=== PATIENT | female | born 2000 | race Caucasian/White ===

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

== ENCOUNTER 2024-04-06 09:42 | Outpatient (CLI) | payer BC, SELFPAY ==
--- NOTE | ~2024-04-06 | US_ITS ---
EXAMINATION: US pelvic complete w TV INDICATION: Left pelvic fullness Comparison:No prior studies for comparison. TECHNIQUE: Multiple transabdominal and endovaginal sonographic images of the pelvis performed. FINDINGS: The uterus measures 7.8 x 4.2 x 3 cm. IUD is present. The endometrial complex measures 3 mm . The right ovary measures 2.1 x 1.9 x 2.3 cm and the left ovary measures 2.1 x 4 x 3.2 cm. There is a left ovarian cyst measuring 3.7 cm. There are small follicles in each ovary. Normal doppler signal in both ovaries. There is no free fluid in the pelvis. There are no abnormal masses seen on either side. IMPRESSION: 1. Simple left ovarian cyst measuring 3.7 cm. Reviewed, dictated and finalized at location B.
== END 2024-04-06 09:43 ==
LOC: GOSHIMG 09:43
PROVIDERS: PCP Pediatrics; Visit Provider Nurse Practitioner
DX: R19.09 Other intra-abdominal and pelvic swelling, mass and lump (principal); N83.202 Unspecified ovarian cyst, left side
CPT/HCPCS: 76830; 76856

== ENCOUNTER 2024-05-31 09:14 | Outpatient (CLI) | payer BC, SELFPAY ==
--- NOTE | ~2024-05-31 | US_ITS ---
EXAMINATION: US pelvic complete w TV DATE: 05/31/2024 09:37 INDICATION: Left ovarian cyst. TECHNIQUE: Multiple transabdominal and transvaginal sonographic images of the pelvis were obtained. COMPARISON: Ultrasound 04/06/2024 FINDINGS: TRANSABDOMINAL ULTRASOUND: The uterus measures 8.0 x 4.3 x 3.3 cm. There is no free fluid in the pelvis. TRANSVAGINAL ULTRASOUND: The endometrial complex measures 3 mm in thickness. There is an intrauterine device in expected posit ion. The right ovary measures 2.4 x 1.8 x 2.0 cm. The left ovary is not visualized. IMPRESSION: 1. Left ovary not visualized. 2. Intrauterine device in expected position. Reviewed, dictated and finalized at location A.
== END 2024-05-31 09:15 | disposition home or self-care (01) ==
LOC: GOSHIMG 09:15
PROVIDERS: PCP Obstetrics & Gynecology Gynecology; Visit Provider Obstetrics & Gynecology Gynecology
DX: N83.202 Unspecified ovarian cyst, left side (principal); Z97.5 Presence of (intrauterine) contraceptive device
CPT/HCPCS: 76830; 76856

== ENCOUNTER 2024-12-24 15:02 | Emergency (ER) | payer BC, SELFPAY ==
--- NOTE | 2024-12-24 15:03 | ED.ABDPAIN ---
HPI - Abdominal Pain General Chief Complaint: Abdominal Pain Stated Complaint: Abdominal Pain Time Seen by Provider: 12/24/24 15:20 Source: patient Mode of arrival: ambulatory Limitations: no limitations History of Present Illness HPI narrative: Floyd is a 24-year-old female patient presenting to the clinic today with complaints of right lower quadrant pain that started 2-3 hours ago. She reports pain was sharp initially but now is dull. Denies any urinary symptoms. Denies any chance of . Last menstrual period unknown- has IUD. Last BM yesterday and normal. No n/v/d. No fever. Related Data Home Medications ?Medication ?Instructions ?Recorded ?Confirmed ?Last Taken ?Type norethindrone 1 mg-ethinyl 1 tablet PO DAILY 12/18/20 01/13/21 12/27/20 History estradiol 20 mcg (24)-iron 75 mg (4) tablet (Aurovela 24 Fe) Allergies Allergy/AdvReac Type Severity Reaction Status Date / Time No Known Allergies Allergy Verified 12/24/24 15:04 Review of Systems Review of Systems: Pertinent positives per HPI. Patient denies any fever, chills, rash, headache, visual changes, dizziness, cough, runny nose, sore throat, shortness of breath, chest pain, palpitations, nausea, vomiting, diarrhea, constipation, or any urinary issues. PMFSH Social History Social History Smoking status: Never smoker Alcohol intake: never Substance use: never Substance use type: does not use Living arrangements: with family Spiritual care concerns: No Comments At the time of my signature, I reviewed and agree with the nursing past medical, surgical, social, and family history. There is no relevant family history pertinent to the patient complaint. Exam Narrative: General: Well-developed, well nourished, in no apparent distress. Head: Normocephalic, atraumatic. Cardio: Regular rate and rhythm, s1 and s2 normal, no murmur appreciated. Resp: Clear to auscultation bilaterally, no rhonchi, rales, wheezing or rubs. Abdomen: Soft, pliable, bowel sounds present in all quadrants, right upper and lower quadrant tender to palpation, no psoas, no rebound, no organomegly, no CVAT tenderness. Course Course Emergency Course: Portions of this record may have been created with voice recognition software. Level of Care: Express Care Visit Vital Signs Vital signs: Vital signs reviewed Transfer Transfered to: [facility] Transportation: Other (Private car) Transfer rationale: Right lower quadrant abdominal pain rule out appendicitis Accepting physician: Pricilla-physician's administrative personal assistant Transfer comments: Private car MDM - Abdominal Pain MDM Narrative Medical decision making narrative: At the time of visit patient is resting comfortably on the exam table. Patient appears to be nontoxic. Plan: Patient has right lower quadrant tenderness as well as some right upper quadrant tenderness. No fever, nausea, vomiting, or diarrhea. No urinary symptoms. Recommend transfer to the emergency room for further evaluation to rule out appendicitis. Patient would like to go to [facility] emergency room. Contacted Pricilla-physician administrative personal assistant at [facility] and she accepts patient for transfer. Patient to be transferred via private car. Differential Diagnosis Differential diagnosis: Likely abdominal pain, acute appendicitis, calculus of kidney, constipation, diverticulitis, endometriosis, gastroenteritis, pancreatitis, small bowel obstruction and other (Ectopic ) Discharge Plan Discharge Clinical Impression: Right lower quadrant abdominal pain Patient Disposition: Acute Care Hospital Condition: Stable Patient Language: [place] Islander Prescriptions: No Action norethindrone-e.estradiol-iron [Aurovela 24 Fe] 1 mg-20 mcg (24)/75 mg (4) tablet 1 tablet PO DAILY Follow-up/Referrals: PHYSICIAN,[employer] WORKER [Primary Care Provider] - Time of Disposition: 15:30 Quality NIHSS Nursing Documentation ED NIHSS nursing documentation: reviewed/agree
[2024-12-24 15:22] VITALS: BP 143/87; PULSE 75; RESP 16; TEMP 36.9; O2SAT 100
== END 2024-12-24 15:30 | disposition short-term general hospital (02) ==
PROVIDERS: Emergency Provider Nurse Practitioner Family
DX: R10.31 Right lower quadrant pain (principal)
CPT/HCPCS: 99212; G0463

== ENCOUNTER 2024-12-24 15:45 | Emergency (ER) | payer BC, SELFPAY ==
--- NOTE | ~2024-12-24 | CT_ITS ---
EXAMINATION: CT abdomen pelvis w con DATE: 12/24/2024 17:17 INDICATION: RLQ pain TECHNIQUE: Computed tomography (CT) of the abdomen and pelvis was performed with intravenous contrast . Automated exposure control and iterative reconstruction technique were employed. The dose-length pr oduct was 192.97 mGy-cm. COMPARISON: None. FINDINGS: Lower thorax: Unremarkable Liver: Normal. Biliary/Gallbladder: Gallbladder is normal. No bile duct dilation. Pancreas: No mass or duct dilation. Spleen: 6 mm cyst or hemangioma. Adrenals:No mass. Kidneys: No suspicious mass, obstructing stone, or hydronephrosis. GI tract: No small or large bowel dilation. Normal appendix. Mesentery/Peritoneum: No ascites, mass, or free air. Retroperitoneum: No mass. Pelvis: Urinary bladder. Normal uterus. IUD, in good position. Normal left ovary. The right ovaries l arger than the left, measuring up to 3.5 cm versus 2.1 cm on the left. Soft Tissues: Soft tissues and body wall unremarkable. Bones: No acute osseous finding. IMPRESSION: Asymmetric enlargement of the right ovary, without evidence of twisting of the vascular pedicle. Poss ible hyperdense/isodense ovarian cyst or other lesion. Correlate for clinical findings of torsion. Co nsider pelvic ultrasound. Reviewed, dictated and finalized at location K. IMPRESSION: Asymmetric enlargement of the right ovary, without evidence of twisting of the vascular pedicle. Possible hyperdense/isodense ovarian cyst or other lesion. Co rrelate for clinical findings of torsion. Consider pelvic ultrasound.
--- NOTE | ~2024-12-24 | US_ITS ---
EXAMINATION: US pelvic complete w TV DATE: 12/24/2024 18:51 INDICATION: rlq pain, abnormal ct of ovary TECHNIQUE: Multiple transabdominal and endovaginal sonographic images of the pelvis were obtained. COMPARISON: CT abdomen pelvis 12/24/2024. FINDINGS: Uterus: 8.1 x 3.3 x 4.[address], in good position, which obscures the endometrial complex. F luid in the endocervical canal. Right Ovary: 2.7 x 2.0 x 2.2 cm. Vascular flow is present. 8 and 9 mm simple cysts or dominant follic les. Left Ovary: 2.2 x 1.7 x 1.6 cm. Vascular flow is present. No adnexal mass. There is no free fluid in the pelvis. IMPRESSION: IUD, in good position. Endometrial stripe is obscured. Endocervical fluid, correlate with menstrual c ycle and/or evidence of vaginal bleeding. Normal-appearing ovaries. Reviewed, dictated and finalized at location K. IMPRESSION: IUD, in good position. Endometrial stripe is obscured. Endocervical fluid, sheila elate with menstrual cycle and/or evidence of vaginal bleeding. Normal-appearin g ovaries.
--- OUTSIDE RECORDS SUMMARY | 2024-12-24 15:47 | XMS_ITS | Data Portability ---
Author Organization [place] - [facility] [employer], Main Office Address [address] [place] [address] Assessment No assessment recorded. Plan of Treatment Reminders Order Date Submit Date Provider Last Modified By Organization Details Last Modified Time Details Appointments None recorded. Lab CBC w/ auto diff 2023 [facility], [address] [place], [address], 13:31:55 T4, free, serum 2023 [facility], [address] [place], [address], 14:10:32 TSH, serum or plasma 2023 [facility], [address] [place], [address], 14:28:43 CMP, serum or plasma 2023 [facility], [address] [place], [address], 13:54:39 Referral None recorded. Procedures None recorded. Surgeries None recorded. Imaging None recorded. Medication Orders paroxetine 10 mg tablet 2023 [place] [facility] [id number], [address] , [place], [place], [id number], 11:04:47 Patient TargetsNo targets recorded. Patient Instructions Encounter Date Encounter Id Patient Instructions Last Modified By Organization Details Last Modified Time 08/30/2024 [id number] risk assessment* Not availabl e 08/30/2024 11:04:40 INFLUENZA VACCIN E Recommended today, but patient declined Ordered Leydi ent will get at local pharmacy/health department TD/TDAP Recommended today, patient declined Ordered Leydi ent will get at local pharmacy/health department MAMMOGRAM Recommended today, but patient declined Ordered No screening indicated at this time/ no family history CERVICAL SCREENING/PELVIC EXAMINATION No screening necessary patient is up to date COLORECTAL SCREENING Recommended today, but patient declined Ordered Varney noscopy declined. Cologuard ordered No screening necessary until age 45 DEPRESSION SCREENING Negative BMI Overweight Appropriat e NUTRITION Heart Healthy Diet PHYSICAL ACTIVITY Appropriate VISION ALCOHOL USE No alcohol use Occasional/Social Use TOBACCO USE non smoker SEXUALLY ACTIVE GLUCOSE SCREENING Ordered Not needed LIPID SCREENING Ordered Not needed [email or web address] Not available 08/30/2024 10:55:46 Will patient evaluation risk assessment stable. Follow-up for anxiety disorder. Will check some blood work consisting of CBC thyroid and CMP. Will continue on current medications started on some paroxetine 10 mg once daily to see if there is any improvement. Will proceed accordingly. Check back in eight weeks. Follow Up: 2 Months Approximate Date: 10/29/2024 Portions of the record may have been created with voice recognition software. Occasional wrong-word or [id number]-c-[id number] substitutions may have occurred due to the inherent limitations of voice recognition software. Read the chart carefully and recognize, using context, where substitutions have occurred. Created: Jaspal Vigil M.D. 08.30.2024 10:04 AM [email or web address] Not available 08/30/2024 11:05:02 10/25/2024 [id number] Follow-up for an xiety doing well. He is taking the paroxetine on a p.r.n. Type basis and getting by well with this. See no contraindications to continue the administer the medication at this frequency. Will continue on current Rx follow-up in six months Follow Up: 6 Months Approximate Date: 04/23/2025 Portions of record are template driven. When necessary additional context will be provided. Additionally some portions have been created with voice recognition software. Occasional wrong-word or uezsv-h-bufi substitutions may have occurred due to the inherent limitations of voice recognition software. Read the chart carefully and recognize, using context, where substitutions may have occurred. Created: Jaspal Vigil M.D. 10.25.2024 04:05 PM [email or web address] Not available 10/25/2024 17:05:45 Reason for Referral None Reported. Results Created Date Observation Date Name Description Value Unit Range Abnormal Flag Note LastModifiedBy Organization Detail LastModifiedTime 04/29/20 21 04/29/2021 SARS- COV-2 RNA(C OVID1 9),RT -PCR sars-cov-2 RNA(covid19) ,RT-PCR negati ve This test has been autho rized by the FDA under an Emerg ency Use Autho rizat ion (EUA) for use by autho rized labor atori es. Negat adelso resul ts do not precl ude SARS- CoV-2 and shoul d not be used as the sole basis for treat ment or other patie nt manag ement decis ions. Test resul ts shoul d be corre lated with the clini nury histo ry, epide miolo gical data, and other data avail able to the clini stephanie evalu ating the patie nt. Jahaira howard w the Fact Sheet s for healt h care provi ders and patie nts at the [facility] jason: https ://ww w.fda .gov/ media /1363 12/do wnloa d https ://ww w.fda .gov/ media /1363 13/do wnloa d https ://ww w.fda .gov/ media /1421 92/do wnloa d https ://ww w.fda .gov/ media /1421 91/do wnloa d Ayanna mensah y: Real- Time RT-PC R Not Available [facility] (Lab) [address] [place], [address], 04/29/2021 15:08:52 05/15/20 21 05/15/2021 C REACT ADELSO PROTE IN,UL TRA SENS C-reactive protein 2.23 mg/dL 0.0-0. 5 high Not Available [facility] (Lab) [address] [place], [address], 05/15/2021 17:13:52 05/15/20 21 05/15/2021 D-DIM ER D-dimer 0.57 mg/L_ feu 0.00-0 .49 high D-Dim er negat adelso predi ctive value to exclu de DVT and PE is <0.50 mg/L (FEU) . Not Available [facility] (Lab) [address] [place], [address], 05/15/2021 16:34:12 08/30/20 24 08/30/2024 CBC/C OMPLE TE BLD COUNT W/DIF F white blood cells 7.5 x10'3 /uL 4.2-10 .8 Not Available [facility] (Lab) [address] [place], [address], 08/30/2024 13:31:55 08/30/20 24 08/30/2024 CBC/C OMPLE TE BLD COUNT W/DIF F red blood cells 4.46 x10'6 /uL 3.80-5 .20 Not Available [facility] (Lab) [address] [place], [address], 08/30/2024 13:31:55 08/30/20 24 08/30/2024 CBC/C OMPLE TE BLD COUNT W/DIF F hemoglobin 13.5 g/dL 12.0-1 5.6 Not Available [facility] (Lab) [address] [place], [address], 08/30/2024 13:31:55 08/30/20 24 08/30/2024 CBC/C OMPLE TE BLD COUNT W/DIF F hematocrit 39.8 % 35.7-4 5.7 Not Available [facility] (Lab) [address] [place], [address], 08/30/2024 13:31:55 08/30/20 24 08/30/2024 CBC/C OMPLE TE BLD COUNT W/DIF F mean red cell volume 89.2 fL 82.0-9 9.0 Not Available [facility] (Lab) [address] [place], [address], 08/30/2024 13:31:55 08/30/20 24 08/30/2024 CBC/C OMPLE TE BLD COUNT W/DIF F mean red cell hemoglobin 30.3 pg 27.0-3 3.0 Not Available [facility] (Lab) [address] [place], [address], 08/30/2024 13:31:55 08/30/20 24 08/30/2024 CBC/C OMPLE TE BLD COUNT W/DIF F mean RBC HGB concentratio n 33.9 g/dL 31.0-3 6.0 Not Available [facility] (Lab) [address] [place], [address], 08/30/2024 13:31:55 08/30/20 24 08/30/2024 CBC/C OMPLE TE BLD COUNT W/DIF F red cell distribution width 12.5 % 11.8-1 5.5 Not Available [facility] (Lab) [address] [place], [address], 08/30/2024 13:31:55 08/30/20 24 08/30/2024 CBC/C OMPLE TE BLD COUNT W/DIF F platelets 266 x10'3 /uL 150-40 0 Not Available [facility] (Lab) [address] [place], [address], 08/30/2024 13:31:55 08/30/20 24 08/30/2024 CBC/C OMPLE TE BLD COUNT W/DIF F mean platelet volume 11.8 fL 9.0-12 .4 Not Available [facility] (Lab) [address] [place], [address], 08/30/2024 13:31:55 08/30/20 24 08/30/2024 CBC/C OMPLE TE BLD COUNT W/DIF F neutrophils 63.4 % 39.0-7 2.0 Not Available [facility] (Lab) [address] [place], [address], 08/30/2024 13:31:55 08/30/20 24 08/30/2024 CBC/C OMPLE TE BLD COUNT W/DIF F lymphocytes 27.8 % 16.0-4 7.0 Not Available [facility] (Lab) [address] [place], [address], 08/30/2024 13:31:55 08/30/20 24 08/30/2024 CBC/C OMPLE TE BLD COUNT W/DIF F monocytes 6.8 % 5.0-12 .0 Not Available [facility] (Lab) [address] [place], [address], 08/30/2024 13:31:55 08/30/20 24 08/30/2024 CBC/C OMPLE TE BLD COUNT W/DIF F eosinophils 1.3 % 1.0-7. 0 Not Available [facility] (Lab) [address] [place], [address], 08/30/2024 13:31:55 08/30/20 24 08/30/2024 CBC/C OMPLE TE BLD COUNT W/DIF F basophils 0.4 % 0.0-2. 0 Not Available [facility] (Lab) [address] [place], [address], 08/30/2024 13:31:55 08/30/20 24 08/30/2024 CBC/C OMPLE TE BLD COUNT W/DIF F immature granulocytes 0.3 % 0.00-0 .50 Not Available [facility] (Lab) [address] [place], [address], 08/30/2024 13:31:55 08/30/20 24 08/30/2024 CBC/C OMPLE TE BLD COUNT W/DIF F neutrophils, absolute count 4.76 x10'3 /uL 1.5-8. 0 Not Available [facility] (Lab) [address] [place], [address], 08/30/2024 13:31:55 08/30/20 24 08/30/2024 CBC/C OMPLE TE BLD COUNT W/DIF F lymphocytes, absolute count 2.09 x10'3 /uL 1.07-3 .43 Not Available [facility] (Lab) [address] [place], [address], 08/30/2024 13:31:55 08/30/20 24 08/30/2024 CBC/C OMPLE TE BLD COUNT W/DIF F monocytes, absolute count 0.51 x10'3 /uL 0.29-0 .99 Not Available [facility] (Lab) [address] [place], [address], 08/30/2024 13:31:55 08/30/20 24 08/30/2024 CBC/C OMPLE TE BLD COUNT W/DIF F eosinophils, absolute count 0.10 x10'3 /uL 0.02-0 .53 Not Available [facility] (Lab) [address] [place], [address], 08/30/2024 13:31:55 08/30/20 24 08/30/2024 CBC/C OMPLE TE BLD COUNT W/DIF F basophils, absolute count 0.03 x10'3 /uL 0.01-0 .08 Not Available [facility] (Lab) [address] [place], [address], 08/30/2024 13:31:55 08/30/20 24 08/30/2024 CBC/C OMPLE TE BLD COUNT W/DIF F immature granulocytes ,absolute 0.02 x10'3 /uL 0.00-0 .05 Not Available [facility] (Lab) [address] [place], [address], 08/30/2024 13:31:55 08/30/20 24 08/30/2024 CBC/C OMPLE TE BLD COUNT W/DIF F nucleated red blood cells 0.0 % -0 Not Available [facility] (Lab) [address] [place], [address], 08/30/2024 13:31:55 08/30/20 24 08/30/2024 CBC/C OMPLE TE BLD COUNT W/DIF F NRBC# 0.00 x10'3 /uL Not Available [facility] (Lab) [address] [place], [address], 08/30/2024 13:31:55 08/30/20 24 08/30/2024 COMPR EHENS ADELSO METAB OLIC PANEL sodium 137 mmol/ L 137-14 5 Not Available [facility] (Lab) [address] [place], [address], 08/30/2024 13:54:39 08/30/20 24 08/30/2024 COMPR EHENS ADELSO METAB OLIC PANEL potassium 4.0 mmol/ L 3.5-5. 1 Not Available [facility] (Lab) [address] [place], [address], 08/30/2024 13:54:39 08/30/20 24 08/30/2024 COMPR EHENS ADELSO METAB OLIC PANEL chloride 104 mmol/ L 98-107 Not Available [facility] (Lab) [address] [place], [address], 08/30/2024 13:54:39 08/30/20 24 08/30/2024 COMPR EHENS ADELSO METAB OLIC PANEL carbon dioxide 24 mmol/ L 22-30 Not Available [facility] (Lab) [address] [place], [address], 08/30/2024 13:54:39 08/30/20 24 08/30/2024 COMPR EHENS ADELSO METAB OLIC PANEL anion gap 13.0 mmol/ L 14-22 low Not Available [facility] (Lab) [address] [place], [address], 08/30/2024 13:54:39 08/30/20 24 08/30/2024 COMPR EHENS ADELSO METAB OLIC PANEL glucose 85 mg/dL 70-99 Not Available [facility] (Lab) [address] [place], [address], 08/30/2024 13:54:39 08/30/20 24 08/30/2024 COMPR EHENS ADELSO METAB OLIC PANEL BUN 15 mg/dL 8-19 Not Available [facility] (Lab) [address] [place], [address], 08/30/2024 13:54:39 08/30/20 24 08/30/2024 COMPR EHENS ADELSO METAB OLIC PANEL creatinine 0.84 mg/dL 0.66-1 .25 Not Available [facility] (Lab) [address] [place], [address], 08/30/2024 13:54:39 08/30/20 24 08/30/2024 COMPR EHENS ADELSO METAB OLIC PANEL GFR >60 Refer ence Range : [place] GFR Healt hy Adult : >60 mL/mi n/1.7 3 m2 Chron ic Kidne y Disea se: 15-60 mL/mi n/1.7 3 m2 Kidne y Failu re: <15/m L/min /1.73 m2 www.n iddk. nih.g ov The MDRD study equat ion has not been valid ated in child herbie <18 years of age; pregn ant women ; the elder ly >85 years of age; or in some racia l or ethni c subgr oups, such as Hispa nics. Outsi de the valid ated eliz eters , estim ated GFR is less accur ate, requi ring clini nury judgm ent on a case- by-ca se basis . Clini nury inter preta tion for other races and ages must be made by the clini stephanie. The MDRD study equat ion has not been valid ated for the evalu ation of serum creat inine relat ed to nutri michelet l statu s or medic ation usage . For perso ns <18 years of age, a pedia tric GFR calcu lator is avail able on the [facility] websi te: https ://glenis w.susan nicky.o rg/pr ofess ional s/kdo qi/gf r_cal culat or Not Available [facility] (Lab) [address] [place], [address], 08/30/2024 13:54:39 08/30/2008/30/2024 COMPR EHENS ADELSO METAB OLIC PANEL alkaline phosphatase 86 U/L 38-126 Not Available [facility] (Lab) [address] [place], [address], 08/30/2024 13:54:39 08/30/20 24 08/30/2024 COMPR EHENS ADELSO METAB OLIC PANEL alanine aminotransfe rase 33 U/L 0-35 Not Available [facility] (Lab) [address] [place], [address], 08/30/2024 13:54:39 08/30/20 24 08/30/2024 COMPR EHENS ADELSO METAB OLIC PANEL aspartate aminotransfe rase 37 U/L 15-37 Not Available [facility] (Lab) [address] [place], [address], 08/30/2024 13:54:39 08/30/20 24 08/30/2024 COMPR EHENS ADELSO METAB OLIC PANEL bilirubin, total 0.90 mg/dL 0.20-1 .30 Not Available [facility] (Lab) [address] [place], [address], 08/30/2024 13:54:39 08/30/20 24 08/30/2024 COMPR EHENS ADELSO METAB OLIC PANEL calcium 9.6 mg/dL 8.4-10 .2 Not Available [facility] (Lab) [address] [place], [address], 08/30/2024 13:54:39 08/30/20 24 08/30/2024 COMPR EHENS ADELSO METAB OLIC PANEL total protein 8.0 g/dL 6.3-8. 2 Not Available [facility] (Lab) [address] [place], [address], 08/30/2024 13:54:39 08/30/20 24 08/30/2024 COMPR EHENS ADELSO METAB OLIC PANEL albumin 4.6 g/dL 3.4-5. 0 Not Available [facility] (Lab) [address] [place], [address], 08/30/2024 13:54:39 08/30/20 24 08/30/2024 COMPR EHENS ADELSO METAB OLIC PANEL globulin 3.4 g/dL 2.6-4. 2 Not Available [facility] (Lab) [address] [place], [address], 08/30/2024 13:54:39 08/30/20 24 08/30/2024 COMPR EHENS ADELSO METAB OLIC PANEL A/G ratio 1.4 ratio 1.0-2. 0 Not Available [facility] (Lab) [address] [place], [address], 08/30/2024 13:54:39 08/30/20 24 08/30/2024 T4 FREE free T4 1.22 NG/dL 0.78-2 .19 Not Available [facility] (Lab) [address] [place], [address], 08/30/2024 14:10:32 08/30/20 24 08/30/2024 TSH thyroid-stim ulating hormone 2.060 uIU/m L 0.465- 4.680 Not Available [facility] (Lab) [address] [facility], [place], [address], 08/30/2024 14:28:43 05/15/20 21 05/15/2021 elect mary flores am No observ ation record ed. [id number] Not Available 11/25/2022 22:47:06 Result Notes None recorded. Problems Name Problem SNOMED Code Status Onset Date Resolution Date Notes Provider Name and Address Organization Details Recorded Time Acute sinusitis 69736028 Active 022 Not Available [facility] 3 22:45:09 Anxiety disorder 853373565 Active 024 Jaspal Vigil MD [address] [facility], [facility] [address], [place], [address] , [facility] [place] [place] [employer] 4 10:59:59 Problem Notes None recorded. Procedures Surgical History Date Name Laterality Status Provider Name and Address Organization Details Recorded Time Remove tonsils and adenoids completed Not Available [facility] 11/25/2022 22:43:54 Imaging Results Imaging Date Name Status LastModified by Organization Details LastModified Time 05/15/2021 electrocardiogram completed [id number] Information not available 11/25/2022 22:47:06 Procedure Notes None recorded. Medical Equipment None Reported. Medications Name Sig Start Date Stop Date Status Note LastModified by Organization Details LastModified Time amoxicillin 500 mg capsule Take 1 capsule every 8 hours by oral route. 08/30 completed Not Available Not Available Not Available paroxetine 10 mg tablet Take 1 tablet every day by oral route. active Not Available Not Available No t Available Tubersol 5 tub. unit/0.1 mL intradermal injection solution Inject 0.1 mL by intraderm al route. 08/30 completed Not Available Not Available Not Available terconazole 0.8 % vaginal cream INSERT 1 APPLICATO RFUL VAGINALLY AT BEDTIME FOR 3 NIGHTS 08/30 completed Not Available Not Available Not Available Zithromax Z-Tonny 250 mg tablet TAKE 2 TABLETS (500 MG) BY ORAL ROUTE ONCE DAILY FOR 1 DAY THEN 1 TABLET (250 MG) BY ORAL ROUTE ONCE DAILY FOR 4 DAYS 05/15 completed Not Available Not Available Not Available oxycodone 5 mg/5 mL oral solution 01/15 completed Not Available Not Available Not Available ciprofloxac in 250 mg tablet 08/30 completed Not Available Not Available Not Available cephalexin 250 mg/5 mL oral suspension SHAKE LIQUID AND TAKE 10 ML BY MOUTH THREE TIMES DAILY 01/15 completed Not Available Not Available Not Available hydroxyzine HCl 25 mg tablet Take 1 tablet 3 times a day by oral route as needed. 08/30 completed Not Available Not Available Not Available norethindro ne 1 mg-e. estradiol 20 mcg (24)-iron 75 mg (4) chew tablet [employer]VEL CONSULTANT ONE T DAILY 08/30 completed Not Available Not Available Not Available Liletta 20.4 mcg/24 hr (up to 8 years) 52 mg intrauterin e device Take by intrauter ine route. active Not Available Not Available No t Available Aurovela 24 Fe 1 mg-20 mcg (24)/75 mg (4) tablet TAKE 1 TABLET BY MOUTH DAILY 08/30 completed Not Available Not Available Not Available Vitals Date Recorded Body mass index (BMI) Heart rate Body height Heart rate Body temperature Body weight Systolic blood pressure Diastolic blood pressure Provider Name and Address Organization Details Last Updated DateTime 1 19.9 kg/m2 12 /min 152.4 cm 64 /min 97 [degF] 46808.4 2 g 102 mm[Hg] 72 mm[Hg] Not Available [facility] 3 22:44:47 Date Recorded Body mass index (BMI) Body height Oxygen saturation Oxygen saturation in Arterial blood by Pulse oximetry Heart rate Body temperature Body weight Systolic blood pressure Diastolic blood pressure Provider Name and Address Organization Details Last Updated DateTime 1 19.5 kg/m2 152.4 cm 99 % 99 % 87 /min 97.6 [degF] 99608.2 4 g 106 mm[Hg] 60 mm[Hg] Not Available [facility] 3 22:44:47 Date Recorded Body height Body mass index (BMI) Body weight Heart rate Body temperature Oxygen saturation Oxygen saturation in Arterial blood by Pulse oximetry Systolic blood pressure Diastolic blood pressure Provider Name and Address Organization Details Last Updated DateTime 4 152.4 cm 23.4 kg/m2 65512.0 8 g 80 /min 97 [degF] 99 % 99 % 116 mm[Hg] 82 mm[Hg] Thelma CastilloARIELLE [place] [facility] [employer] 4 10:47:50 Date Recorded Body height Body mass index (BMI) Body weight Heart rate Body temperature Oxygen saturation Oxygen saturation in Arterial blood by Pulse oximetry Systolic blood pressure Diastolic blood pressure Provider Name and Address Organization Details Last Updated DateTime 5 152.4 cm 23.4 kg/m2 28527.0 8 g 80 /min 97 [degF] 97 % 97 % 112 mm[Hg] 74 mm[Hg] Roseanna Granados [place] [employer] 5 16:58:21 Social History Question Answer Notes LastModified by Organizat ion Details LastModified Time Tobacco Smoking Status Never Smoker Not Available [facility] 11/25/2022 22:43:40 Do You Have An Advance Directive? No [id number] Information not available 11/25/2022 In The 14 Days Before Symptom Onset, Have You Had Close Contact With A Laboratory-confir med COVID-19 While That Case Was Ill? No [id number] Information not available 11/25/2022 In The 14 Days Before Symptom Onset, Have You Had Close Contact With A Person Who Is Under Investigation For COVID-19 While That Person Was Ill? No [id number] Information not available 11/25/2022 What Type Of Diet Are You Following? REGULAR [id number] Information not available 11/25/2022 Do You Or Have You Ever Used E-cigarettes Or Vape? Never Used Electronic Cigarettes [id number] Information not available 11/25/2022 Have There Been Any Changes To Your Family Or Social Situation? No [id number] Information not available 11/25/2022 Do You Have A Medical Power Of Print Production Associate? No [id number] Information not available 11/25/2022 Do You Or Have You Ever Used Smokeless Tobacco? Never Used Smokeless Tobacco [id number] Information not available 11/25/2022 How Much Tobacco Do You Smoke? No [id number] Information not available 11/25/2022 How Many Years Have You Smoked Tobacco? 0 [id number] Information not available 11/25/2022 Have You Recently Traveled Abroad? No [id number] Information not available 11/25/2022 Do You Have Any Dietary Restrictions? No [id number] Information not available 11/25/2022 Sex: Female Functional Status None recorded. Mental Status None recorded. Family History Relationship Description Onset Age of this Age Resolved Age Notes LastModified by Organization Details LastModified Time Father No current problems or disability [id number] Not available 11/25/2022 22:43:56 Mother No current problems or disability [id number] Not available 11/25/2022 22:43:56 Notes:Mother [address] [facility] er 47 with HTN One sister living in good healthMother 49 with DM Father 51 with HTN One sister living in good health Medical History Condition Response HAVE YOU BEEN HOSPITALIZED OR SEEN IN [facility] IN THE PAST YEAR ? Y NO SIGNIFICANT PAST MEDICAL HISTORY N Gynecological HistoryNo gynecological history recorded. Obstetrics History GPAL:G 0 P 0 0 0 0 Immunizations Vaccine Type Date Status Note Provider [facility] e and Address Organization Details Recorded Time TST-PPD intradermal 1 completed Not Available [facility] 11/25/2022 22:46:52 COVID-19 Non-US Vaccine, Product Unknown 1 completed Not Available [facility] 11/25/2022 22:46:53 COVID-19 Non-US Vaccine, Product Unknown 1 completed Not Available [facility] 11/25/2022 22:46:53 meningococcal ACWY, unspecified formulation 0 completed Not Available [facility] 11/25/2022 22:46:53 meningococcal ACWY, unspecified formulation 8 completed Not Available [facility] 11/25/2022 22:46:53 HPV9 7 completed Not Available [facility] 11/25/2022 22:46:53 HPV9 6 completed Not Available [facility] 11/25/2022 22:46:53 meningococcal ACWY, unspecified formulation 5 completed Not Available [facility] 11/25/2022 22:46:53 Tdap 3 completed [facility] 11/25/2022 22:46:53 varicella 3 completed Not Available [facility] 11/25/2022 22:46:53 MMR 7 completed Not Available [facility] 11/25/2022 22:46:53 IPV 7 completed Not Available [facility] 11/25/2022 22:46:53 DTaP, unspecified formulation 7 completed Not Available [facility] 11/25/2022 22:46:53 Hep A, unspecified formulation 5 completed Not Available [facility] 11/25/2022 22:46:53 Hep A, unspecified formulation 3 completed Not Available [facility] 11/25/2022 22:46:54 IPV 3 completed Not Available [facility] 11/25/2022 22:46:54 Hib, unspecified formulation 3 completed Not Available [facility] 11/25/2022 22:46:54 DTaP, unspecified formulation 3 completed Not Available [facility] 11/25/2022 22:46:54 pneumococcal conjugate PCV 7 3 completed Not Available [facility] 11/25/2022 22:46:54 MMR 3 completed Not Available [facility] 11/25/2022 22:46:54 varicella 2 completed Not Available [facility] 11/25/2022 22:46:54 Hep B, unspecified formulation 2 completed Not Available [facility] 11/25/2022 22:46:54 pneumococcal conjugate PCV 7 2 completed Not Available [facility] 11/25/2022 22:46:54 Hib, unspecified formulation 2 completed Not Available [facility] 11/25/2022 22:46:54 DTaP, unspecified formulation 2 completed Not Available [facility] 11/25/2022 22:46:54 pneumococcal conjugate PCV 7 2 completed Not Available [facility] 11/25/2022 22:46:54 IPV 2 completed Not Available [facility] 11/25/2022 22:46:55 Hib, unspecified formulation 2 completed Not Available [facility] 11/25/2022 22:46:55 DTaP, unspecified formulation 2 completed Not Available [facility] 11/25/2022 22:46:55 pneumococcal conjugate PCV 7 2 completed Not Available [facility] 11/25/2022 22:46:55 IPV 2 completed Not Available [facility] 11/25/2022 22:46:55 Hib, unspecified formulation 2 completed Not Available [facility] 11/25/2022 22:46:55 DTaP, unspecified formulation 2 completed Not Available [facility] 11/25/2022 22:46:55 Hep B, unspecified formulation 1 completed Not Available [facility] 11/25/2022 22:46:55 Hep B, unspecified formulation 1 completed Not Available [facility] 11/25/2022 22:46:55 Influenza, split virus, quadrivalent, PF 2 completed Not Available [facility] 11/25/2022 22:46:55 Influenza, split virus, quadrivalent, PF 1 completed Not Available [facility] 11/25/2022 22:46:55 Past Encounters Encounter ID Performer Location Encounter Start Date Encounter Closed Date Diagnosis/Indication Diagnosis SNOMED-CT Code Diagnosis ICD10 Code Diagnosis Note [id number] S[facility] Internal [facility] [address] [address] 01/15/2021 00:00:00 01/15/2021 14:48:58 [id number] [facility] [address] [address] 05/15/2021 00:00:00 05/15/2021 15:23:07 [id number] Jaspal Vigil MD S[facility] Internal [facility] [address] [address] 08/30/2024 10:27:52 08/30/2024 11:09:14 Adult health examination 290958403 Z00.00 Depression screening 171 553702 Z13.31 Anxiety disorder 9055545 06 F41.9 [id number] Jaspal Vigil MD [facility] [address] [address] 10/25/2024 16:43:08 10/25/2024 17:06:52 Anxiety disorder 976939158 F41.9 Health Concerns Section Related Observation LastModified by Organization Detai ls LastModified Time None Recorded Concern Status LastModified by Organization Details LastModified Time None Recorded Advance Directives Directive N: Payers Encounter Date Sequence Insurance Name Policy Number Policy Amaya Covered Member ID Amaya Member ID Guarantor Name 08/30/2024 1 [place] [id number] Elda Mccauleystrom [id number] [address] Lemos 10/25/2024 1 [place] [id number] Elda Mccauleystrom [id number] Floyd Lemos Notes Date Note Type Note Provider Name and Address Organization Details Recorded Time 08/30/2024 text/html Patient Name: Luly LemosDate Of Service: Wednesday ( 08.30.2024 ): 2000 Age: 24 Vital Signs:Blood Pressure: Sitting Rt. Arm 116/82Pulse: Sitting 80 /min and RegularRespiratory Rate: 16Height 60 in or 1.5 mWeight 120 lb or 54.4 kgBMI 23.4Temperature: 97 F or 36.1 CPulse Oximetry: 99 % at rest on no oxygen Chief Complaint: Addressed in HPI Problems or conditions discussed in the HPI were the only ones reviewed during the encounter.Only social and family history addressed in the HPI were reviewed during this encounter. Attendant(s): NoneConstitutional and Systemic Symptoms:none Medication Reconciliation: from medication list. History of Present Illness In for a well patient check up. Last well patient evaluation was approximately one year. No interval complaints of any major medical problems. No hx of any chest pain, shortness of breath, nausea, vomiting, diarrhea or constitutional symptoms. Also being followed for other chronically monitored problems.Has Had A Mammogram DeclinedHas Had A Pap Smear already doneImmunizations Up To Date or refuses to takeNo Significant Change In Family HxColonoscopy or Cologuard: not dueFall Risk normalDepression Score: 0PHQ-9 Score [IndicatedHearing normalVision normalReviewed Smoking and Drug HistoryReviewed Immunization HistoryInstructed on importance of weight on diabetes, heart and other diseases aggravated by obesity. #1. Anxiety Disorder: History of anxiety disorder. There has been some panic attacks. No interval complaints of any vegetative or other signs of depression. Taking Not taking any medication will start on some low-dose Paxil 10 mg once daily and increase as necessary. Will have the patient check back in 4-6 weeks to give us an update. May need to consider increasing at that time.. Discussed possibility of decreasing and weaning off medication. Feels that current regimen is working fine and wishes not to change the current treatment regimen. Medication not causing any sedation or cognitive dysfunction and there is no contraindication to continue current therapy. Active Medication ListParoxetine Hydrochloride 10 MG TABLET, FILM COATED One Daily Vaccination and Immunization( ) 2001- HEP B( ) 2006-12 DTAP( ) 2003-01 HIB( ) 2006-12 POLIO( ) 2006-12 OH(X) 2006-10 PNEUMOCOCCAL CONJUGATE PREVNAR 20 Needed( ) 2013-02 VARICELLA( ) 2020-10 MENINGOCOCCAL VAC( ) 2017-05 HPV( ) 2005-02 HEP A(X) 2013-02 TDAP(X) 2022-06 INFLUENZA Surgical [id number] Tonsillectomy Social HistoryDoes not smoke or drinkStudent Family HistoryMother 49 with DMFather 51 with HTNOne sister living in good healthMenarche 12 Menopause A0 Jaspal Vigil MD [address], [address], [facility] [place] [place] [employer] 08/30/2024 11:05:15 10/25/2024 text/html Patient Name: Luly rod AmintaDate Of Service: Wednesday ( 10.25.2024 ): 2000 Age: 24 Vital Signs:Blood Pressure: Sitting Rt. Arm 112/74Pulse: Sitting 80 /min and RegularRespiratory Rate: 16Height 60 in or 1.5 mWeight 120 lb or 54.4 kgBMI 23.4Temperature: 97 F or 36.1 CPulse Oximetry: 97 % at rest on no oxygen Chief Complaint: Addressed in HPI Problems or conditions discussed in the HPI were the only ones reviewed during the encounter.Only social and family history addressed in the HPI were reviewed during this encounter. Attendant(s): NoneConstitutional and Systemic Symptoms:none Medication Reconciliation: from medication list. History of Present Illness #1. Anxiety Disorder: History of anxiety disorder. There has been no panic attacks. No interval complaints of any vegetative or other signs of depression. Taking Paroxetine Hydrochloride but has been taking more on a p.r.n. basis and work quite well for.. Discussed possibility of decreasing and weaning off medication. Feels that current regimen is working fine and wishes not to change the current treatment regimen. Medication not causing any sedation or cognitive dysfunction and there is no contraindication to continue current therapy. Active Medication ListParoxetine Hydrochloride 10 MG TABLET, FILM COATED One Daily Vaccination and Immunization( ) 2001- HEP B( ) 2006-12 DTAP( ) 2003-01 HIB( ) 2006-12 POLIO( ) 2006-12 OH(X) 2006-10 PNEUMOCOCCAL CONJUGATE PREVNAR 20 Needed( ) 2013-02 VARICELLA( ) 2020-10 MENINGOCOCCAL VAC( ) 2017-05 HPV( ) 2004- HEP A(X) 2013-02 TDAP(X) 2022-06 INFLUENZA Surgical [id number] Tonsillectomy Social HistoryDoes not smoke or drinkStudent Family HistoryMother 49 with DMFather 51 with HTNOne sister living in good healthMenarche 12 Menopause A0 Jaspal Vigil MD [address] [facility], [facility] [address], [place], [address], [facility] [employer] 10/25/2024 17:05:58 OBGyn Episode No OBEpisode recorded.
--- OUTSIDE RECORDS SUMMARY | 2024-12-24 15:47 | XMS_ITS | Clinical Summary ---
Author Organization [facility] Address [address] [place] [address] Care Team Providers Care Product Tester Name Role Phone José Miguel Reid MD Primary Care Provider [phone] Source Comments [facility],non-owned Affiliates and Associated Physician Practices is amultiple site organization consisting of ambulatory clinics and hospital sitesin [place], [place], [place] and [place]. This disclosure is being madepursuant to the Care Everywhere program and may not contain all information available regarding this patient. Last updated 18.[facility] [employer] Allergies No known active allergies Medications Be aware that medications may not be up to date on this document. Always verify current medications with the patient. 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 posture head tilt 11/29/2012 Family History Medical History Relation Name Comments Strabismus Father Maybe when he i s tired, a little drifting Amblyopia Neg Hx Blindness Neg Hx Relation Name Status Comments Father Social History Tobacco Use Types Packs/Day Years Used Date Smoking Tobacco: Never Assessed Sex and Gender Information Value Date Recorded Sex Assigned at Not on file Gender Identity Not on file Sexual Orientation Not on file Plan of Treatment Health Maintenance Due Date Last Done Comments PAP SMEAR 2001 HIV SCREENING 2016 HPV VACCINE (1 - 3-dose series) 2016 CHLAMYDIA/GONORRHEA SCREENING 2017 MENINGOCOCCAL (Group B) VACC INE SHARED DECISION-MAKING (1 of 2 - Standard) 2017 HEPATITIS C SCREENING 08/18/2019 DTAP/TDAP/TD VACCINES (1 - Tdap) 2020 HEPATITIS B VACCINE (1 of 3 - 19+ 3-dose series) 2020 COVID-19 VACCINE (1 - 2023-2 5 season) 2024 INFLUENZA VACCINE (#1) 2024 DEPRESSION SCREENING 09/27/2024 ZOSTER VACCINE (1 of 2) 2051 HIB VACCINE Aged Out No longer eligi ble based on patient's age to complete this topic MENINGOCOCCAL GROUPS A/C/Y/W VACCINE Aged Out No longer eligible b ased on patient's age to complete this topic PNEUMOCOCCAL VACCINE Aged Out No long er eligible based on patient's age to complete this topic Care Teams Product Tester Relationship Specialty Start Date End Date José Miguel Reid MD [address] [place] [address] PCP - General Pediatrics 09/22/12
[2024-12-24 15:50] VITALS: BP 139/91; PULSE 79; RESP 16; TEMP 36.8; O2SAT 100
[2024-12-24 16:13] VITALS: BP 131/86; PULSE 85; RESP 16; TEMP 36.8; O2SAT 99
[2024-12-24 16:14] LABS: BEDSIDEPREGUCG Negative (Negative)
[2024-12-24 16:19] LABS: Basophils Percent Auto 0.5 % (0.2-1.2); Eosinophils Absolute Auto 0.1 K/mm3 (0-0.3); Eosinophils Percent Auto 1.1 % (0-4.4); Hematocrit 40.3 % (37.0-47.0); Hemoglobin 13.8 g/dL (12.0-15.0); Immature Granulocyte Absolute 0.02 K/mm3 (0.00-0.031); Immature Granulocyte Percent A 0.2 % (0-0.5); Lymphocytes Absolute Auto 2.23 K/mm3 (0.9-3.2); Lymphocytes Percent Auto 26.3 % (18.3-44.2); Mean Corpuscular HGB Conc 34.2 g/dl (32-36); Mean Corpuscular Hemoglobin 30.1 pg (26-34); Mean Platelet Volume 10.8 fl (7.4-10.4); Monocytes Absolute Auto 0.5 K/mm3 (0.1-0.6); Monocytes Percent Auto 6.1 % (2.6-8.5); Neutrophils Absolute Auto 5.6 K/mm3 (1.3-6.7); Neutrophils Percent Auto 65.8 % (45.5-73.1); Platelet Count Result 264 k/mm3 (150-375); Red Blood Count 4.58 M/mm3 (4.2-5.4); Red Cell Distribution Width 12.6 % (11.5-14.5); White Blood Count 8.5 K/mm3 (4.5-10.0)
--- OUTSIDE RECORDS SUMMARY | 2024-12-24 16:21 | XMS_ITS | Clinical Summary ---
Author Organization [facility] Address [address] [facility] [place] [address] Care Team Providers Care Mold Car Pusher Name Role Phone José Miguel Reid MD Primary Care Provider [phone] Source Comments [facility],non-owned Affiliates and Associated Physician Practices is amultiple site organization consisting of ambulatory clinics and hospital sitesin [place], [place], [place] and [place]. This disclosure is being madepursuant to the Care Everywhere program and may not contain all information available regarding this patient. Last updated 18.[facility] [employer] Allergies No known active allergies Medications Be [...] age to complete this topic Care Teams Mold Car Pusher Relationship Specialty Start Date End Date José Miguel Reid MD [address] [place] [address] PCP - General Pediatrics 09/22/12
[2024-12-24 16:24] LABS: Add Urine Microscopic? YES; Appearance Urine Cloudy (Clear); Bacteria Urine 4+ /hpf; Bilirubin Urine Negative (Negative); Blood Urine Negative (Negative); Color Urine Yellow (Yellow); Glucose Urine UA Negative (Negative); Ketones Urine Trace mg/dL (Negative); Leukocyte Esterase Ur 1+ LEU/UL (Negative); Nitrate Urine Negative (Negative); Non Pathogenic Casts 0-2; Protein Urine Negative (Negative); RBC Urine 0-2 /hpf (0-2); Specific Grav Ur 1.022 (1.001-1.035); Squamous Epithelial Cell Urine Moderate /hpf (Few); pH Urine 7.5 (5.0-9.0)
[2024-12-24 16:28] LABS: Alanine Aminotransferase 43 U/L (6-35); Albumin Level 4.9 g/dL (3.5-5.1); Alkaline Phosphatase 102 U/L (38-126); Anion Gap 12 mmol/L (4-12); Aspartate Amino Transferase 34 U/L (14-36); Bilirubin,Total 0.7 mg/dL (0.2-1.3); Blood Urea Nitrogen 11 mg/dL (7-17); Calcium 9.7 mg/dL (8.4-10.2); Carbon Dioxide 26 mmol/L (22-30); Chloride 103 mmol/L (98-107); Estimated CRCL calculation 64 ml/min; Estimated Glomerular Filt Rate > 60; Glucose 90 mg/dL (65-110); Lipase 72 U/L (23-300); Potassium 3.8 mmol/L (3.4-5.0); Sodium 141 mmol/L (137-145)
--- NOTE | 2024-12-24 17:40 | ED_ITS ---
HPI - Abdominal Pain General Chief Complaint: Abdominal Pain Stated Complaint: RLQ pain-UC sent, RO Appy Time Seen by Provider: 12/24/24 15:57 Source: patient Mode of arrival: ambulatory Limitations: no limitations History of Present Illness HPI narrative: Patient is a 24-year-old female who presents the ED with report of right lower abdominal pain. Patient reports she began having pain in her right lower abdomen a few hours ago. Pain has been constant since the onset. Does radiate slightly around to right lower back. Went to an urgent care and was referred here for further evaluation. Patient denies any nausea, vomiting, diarrhea, constipation, dysuria, hematuria, fevers. She does have history of 1 previous ovarian cyst, but states she never had issues with this. Has an IUD. Does not have regular cycles. Denies chance of . Related Data Home Medications ?Medication ?Instructions ?Recorded ?Confirmed ?Last Taken ?Type No Home Medications 12/24/24 12/24/24 Unknown History Allergies Allergy/AdvReac Type Severity Reaction Status Date / Time No Known Allergies Allergy Verified 12/24/24 16:15 Review of Systems 2 Review of Systems: All systems reviewed & are unremarkable except as noted in HPI. All systems reviewed & are unremarkable except as noted in HPI and below PMFSH Social History Social History Smoking status: Never smoker Alcohol intake: never Substance use: never Substance use type: does not use Living arrangements: with family Spiritual care concerns: No Exam 2 Narrative: GENERAL: Well appearing, well-nourished, non-toxic, in no acute distress. HEAD: Normocephalic, atraumatic. RESPIRATORY: Airway patent, respirations nonlabored. Clear to auscultation bilaterally, no rales, rhonchi, wheezing. CARDIOVASCULAR: Regular rate and rhythm without murmurs, rubs, or gallops. ABDOMINAL: Soft, mild focal tenderness to palpation in right lower quadrant, right lateral lower abdomen. Nondistended. Normoactive BS. MUSCULOSKELETAL: Moves all extremities. No gross deformities. SKIN: Warm, dry, normal color. NEURO: A&O X3. Speech clear. Cranial nerves II-XII grossly intact. Steady gait. No ataxic movements. PSYCHIATRIC: Appropriate mood and affect. Normal interaction. Course Vital Signs Vital signs: Vital Signs Temperature 98.3 F 12/24/24 15:50 Pulse Rate 79 12/24/24 15:50 Respiratory Rate 16 12/24/24 15:50 Blood Pressure 139/91 H 12/24/24 15:50 Pulse Oximetry 100 12/24/24 15:50 Oxygen Delivery Room Air 12/24/24 15:50 Temperature 98.1 F 12/24/24 19:35 Pulse Rate 80 12/24/24 19:35 Respiratory Rate 16 12/24/24 19:35 Blood Pressure 121/63 12/24/24 19:35 Pulse Oximetry 98 12/24/24 19:35 Oxygen Delivery Room Air 12/24/24 15:50 MDM - Abdominal Pain MDM Narrative Medical decision making narrative: Patient presented to ED with report of RLQ pain that began today. Hx of previous ovarian cyst. Sent from to r/o appendicitis/torsion. Vital signs stable upon arrival. Patient in no acute distress. Did not want anything for pain upon my evaluation. Laboratory studies are unremarkable. No leukocytosis. Stable electrolytes. Stable kidney function. Urinalysis with 6-10 white blood cell count, but moderate squamous cells. Likely contaminated catch. Patient denies any urinary complaints. Sent for culture. Will defer treatment for culture results. is negative. CT of abdomen/pelvis was obtained and showing normal appendix, did show asymmetric enlargement of right ovary. No abnormal twisting noted, but recommended pelvic ultrasound. Ultrasound was obtained and reassuring. Did show 2 small cysts on the right ovary. Normal vascular blood flow to bilateral ovaries. There was a small amount of fluid is. Discussed with patient. She is not currently on her menstrual cycle. Discussed possibility of cyst rupturing earlier today when pain began. Patient has remained hemodynamically stable throughout ED stay. She has not required any pain medication. I feel she is safe for discharge home at this time. She does have an OBGYN that she can follow-up with. Recommended close follow-up for further management of cysts. Discussed strict return precautions. She is in agreement with plan and feels comfortable going home. Discharged in stable condition. Medical Records Attestation: I reviewed the patient's medical records. Lab Data Attestation: I reviewed the patient's lab results. 12/24/24 16:09 12/24/24 16:09 Labs: Lab Results 12/24/24 12/24/24 Range/Units 16:09 16:12 WBC 8.5 (4.5-10.0) K/mm3 RBC 4.58 (4.2-5.4) M/mm3 Hgb 13.8 (12.0-15.0) g/dL Hct 40.3 (37.0-47.0) % MCV 88.0 (80-100) fl MCH 30.1 (26-34) pg MCHC 34.2 (32-36) g/dl RDW 12.6 (11.5-14.5) % Plt Count 264 (150-375) k/mm3 MPV 10.8 H (7.4-10.4) fl Immature Gran % (Auto) 0.2 (0-0.5) % Neut % (Auto) 65.8 (45.5-73.1) % Lymph % (Auto) 26.3 (18.3-44.2) % Mariposa % (Auto) 6.1 (2.6-8.5) % Eos % (Auto) 1.1 (0-4.4) % Baso % (Auto) 0.5 (0.2-1.2) % Lymph # (Auto) 2.23 (0.9-3.2) K/mm3 Mariposa # (Auto) 0.5 (0.1-0.6) K/mm3 Eos # (Auto) 0.1 (0-0.3) K/mm3 Baso # (Auto) 0.0 (0.0-0.1) K/mm3 Abs Immat Gran (auto) 0.02 (0.00-0.031) K/mm3 Absolute Neuts (auto) 5.6 (1.3-6.7) K/mm3 Absolute Nucleated RBC 0.000 (0.0-0.012) K/mm3 Nucleated RBC % 0.0 (0.0-0.2) % Sodium 141 (137-145) mmol/L Potassium 3.8 (3.4-5.0) mmol/L Chloride 103 (98-107) mmol/L Carbon Dioxide 26 (22-30) mmol/L Anion Gap 12 (4-12) mmol/L BUN 11 (7-17) mg/dL Creatinine 0.86 (0.7-1.0) mg/dL Estim Creat Clear Calc 64 ml/min Estimated GFR > 60 (59 - ) Glucose 90 (65-110) mg/dL Calcium 9.7 (8.4-10.2) mg/dL Total Bilirubin 0.7 (0.2-1.3) mg/dL AST 34 (14-36) U/L ALT 43 H (6-35) U/L Alkaline Phosphatase 102 (38-126) U/L Total Protein 9.0 H (6.3-8.2) g/dL Albumin 4.9 (3.5-5.1) g/dL Lipase 72 (23-300) U/L Urine Color Yellow (Yellow) Urine Appearance Cloudy H (Clear) Urine pH 7.5 (5.0-9.0) Ur Specific [place] 1.022 (1.001-1.035) Urine Protein Negative (Negative) mg/dL Urine Glucose (UA) Negative (Negative) mg/dL Urine Ketones Trace H (Negative) mg/dL Ur Blood (Man) Negative (Negative) Urine Nitrate Negative (Negative) Urine Bilirubin Negative (Negative) Urine Urobilinogen 1.0 (<2.0) mg/dL Leukocyte Esterase Rfl 1+ H (Negative) FABIAN/UL Urine RBC 0-2 (0-2) /hpf Urine WBC 6-10 H (0-3) /hpf Ur Squamous Epith Cells Moderate (Few) /hpf Urine Bacteria 4+ H /hpf Urine Casts 0-2 POC Urine HCG, Qual Negative (Negative) Imaging Data Attestation: I personally reviewed and interpreted this imaging study as follows: Radiologist's impression: ITS Impressions Abdomen/Pelvis CT 12/24/24 17:31 IMPRESSION: Asymmetric enlargement of the right ovary, without evidence of twisting of the vascular pedicle. Possible hyperdense/isodense ovarian cyst or other lesion. Correlate for clinical findings of torsion. Consider pelvic ultrasound. Pelvic/Transvag US 12/24/24 19:34 IMPRESSION: IUD, in good position. Endometrial stripe is obscured. Endocervical fluid, correlate with menstrual cycle and/or evidence of vaginal bleeding. Normal- appearing ovaries. Discharge Plan Discharge Clinical Impression: Right lower quadrant abdominal pain, Cyst of right ovary Patient Disposition: Home, Self-Care Condition: Stable Instructions: Antibiotic Form, Ovarian Cyst (ED), Abdominal Pain (ED), Ruptured Ovarian Cyst (ED) Additional Instructions: Continue Tylenol and ibuprofen as needed for pain. You may also use a heating pad. Recommended close follow-up with OBGYN for further evaluation. Return to the ED if you experience worsening or severe pain, unable to keep down food or drink, abnormal vaginal bleeding, persistent fevers, or any other symptoms of concern. Patient Language: Lao Prescriptions: No Action No Home Medications Follow-up/Referrals: Musa,Jaspal Chang MD [Primary Care Provider] - Time of Disposition: 20:04
[2024-12-24 17:55] VITALS: BP 142/62; PULSE 69; RESP 17; TEMP 36.7; O2SAT 98
[2024-12-24 19:35] VITALS: BP 121/63; PULSE 80; RESP 16; TEMP 36.7; O2SAT 98
== END 2024-12-24 20:11 | disposition home or self-care (01) ==
PROVIDERS: Student in an Organized Health Care Education/Training Program; Emergency Provider Physician Assistant; PCP Internal Medicine
DX: N83.201 Unspecified ovarian cyst, right side (principal); Z97.5 Presence of (intrauterine) contraceptive device
CPT/HCPCS: 36415; 74177; 76830; 76856; 80053; 81001; 81025; 83690; 85025; 87086; 99284; Q9967